=== PATIENT | female | born 1950 | race Caucasian/White ===

== ENCOUNTER 2017-06-11 10:23 | Emergency (ER) | payer OTHER ==
[~2017-06-11] VITALS: Ht 170.2 cm; Wt 60.0 kg
[2017-06-11 10:28] VITALS: BP 145/66; PULSE 90; RESP 16; TEMP 97.6; O2SAT 97
[2017-06-11] MEDS ORDERED: ASPI81CH6 CHEW (10:36)
--- NOTE | 2017-06-11 10:39 | PD ---
HPI Chief Complaint: Injury Time Seen by Provider: 10:37 Travel History International Travel<30 days: No Contact w/Intl Traveler<30days: No Traveled to known affect area: No History of Present Illness HPI 2-8-ayat-old female presents via EMS after slipping and falling while trying to get into the bathtub and falling backwards and hitting her left hip on the toilet. She denies hitting her head or loss of consciousness. Denies neck pain or back pain. Has been ambulatory since after the fall and met the ambulance [place] the [place] floor of [place], per EMS. Says pain did radiate to her left thigh area, but not now. Denies paresthesias, loss of sensation, decreased range of motion, decreased strength to the affected extremity. Rates pain 6/10. Worse with movement. Better at rest. EMS gave an ice pack. She took ibuprofen 800 mg prior to EMS arriving. Denies chest pain, shortness of breath, abdominal pain, vomiting. Primary care provider is in [place]. No known allergies. Denies significant past medical history. Denies anticoagulants. Takes baby aspirin daily. Has no other medical complaints. No other modifying factors or associated signs and symptoms. PFSH Past Medical History Medical History: Denies Significant Hx Past Surgical History Hysterectomy: Yes Social History Alcohol Use: Yes (OCCASIONALLY) Tobacco Use: No Substance Use: No Allergies-Medications (Allergen,Severity, Reaction): Coded Allergies: No Known Allergies (Unverified , 06/11/17) Reported Meds & Prescriptions Reported Meds & Active Scripts Active Walker/Adult/Folding (Device) 1 Mis Mis Ea .XX DIRECTED Ibuprofen 800 Mg Tab 800 Mg PO Q6HR PRN Robaxin (Methocarbamol) 500 Mg Tab 500 Mg PO QID PRN Reported Aspirin Low Dose (Aspirin) 81 Mg Chew 81 Mg CHEW DAILY Review of Systems Except as stated in HPI: all other systems reviewed are Neg Physical Exam Narrative GENERAL: Well-nourished, well-developed female patient, in no acute distress; afebrile, nontoxic-appearing SKIN: Warm and dry. HEAD: Atraumatic. Normocephalic. EYES: Pupils equal and round. No scleral icterus. No injection or drainage. ENT: Mucosa pink and moist. Airway patent. NECK: Trachea midline. CARDIOVASCULAR: Regular rate. RESPIRATORY: No accessory muscle use. GASTROINTESTINAL: Flat. MUSCULOSKELETAL: Left hip with full range of motion; without erythema, edema, or ecchymosis; without tenderness on abduction; tenderness on palpation to the lateral aspect; no obvious deformity; no leg length discrepancy. Left lower extremity is supple and non-tense with 2+ pedal pulse and sensory intact and without erythema or edema. NEUROLOGICAL: Awake and alert. Oriented 3. No obvious cranial nerve deficits. Motor grossly within normal limits. Normal speech. PSYCHIATRIC: Appropriate mood and affect; insight and judgment normal. Data Data Last Documented VS Vital Signs Date Time Temp Pulse Resp B/P (MAP) Pulse Ox O2 Delivery O2 Flow Rate FiO2 06/11/17 10:28 97.6 90 16 145/66 (92) 97 Orders Orders Hip, Uni(Ap&Lat) W Ap Pelvis (06/11/17 10:47) Ice/Cold Pack (06/11/17 10:47) Ed Discharge Order (06/11/17 11:39) MDM Medical Decision Making Medical Screen Exam Complete: Yes Emergency Medical Condition: Yes Medical Record Reviewed: Yes Differential Diagnosis Hip contusion, fall, hip fracture Narrative Course 66-year-old female arrives via EMS after mechanical slip and fall with left hip pain. Patient took 800 mg ibuprofen prior to EMS. Left hip with AP pelvis x- ray ordered. 1135: Left hip with AP pelvis x-ray concluded: No evidence of recent bony injury. Discussed x-ray findings with the patient. Robaxin and ibuprofen prescribed for home. A walker was prescribed for home. I offered the patient crutches in the ER and she declined. Instructed patient to follow up with primary care provider. Patient verbalizes understanding and agreement with treatment plan. Patient is medically cleared and stable for discharge. Discussed reasons to return to the emergency department. Patient agrees with treatment plan. The patients vital signs are stable and the patient is stable for outpatient follow-up and treatment. Patient discharged home, stable and in no acute distress. Diagnosis Primary Impression: Fall Qualified Codes: W19.XXXA - Unspecified fall, initial encounter Additional Impression: Contusion of left hip Qualified Codes: S70.02XA - Contusion of left hip, initial encounter Referrals: Primary Care Physician Patient Instructions: General Instructions, Hip Contusion (ED) Additional Instructions: Tylenol or ibuprofen as directed and as needed for pain Robaxin as prescribed and as needed for muscle spasms Crutches/walker as needed for support Heating pad and/or ice to affected area to reduce pain Avoid aggravating activities; increase activity as tolerated Follow-up with primary care provider Return to emergency department immediately with worsening of symptoms Med/Other Pt SpecificInfo: Prescription(s) given Scripts Walker/Adult/Folding (Walker/Adult/Folding) 1 Mis Mis EA .XX DIRECTED, #1 0 Refills Prov: Alexandrea Oliveira 06/11/17 Ibuprofen (Ibuprofen) 800 Mg Tab 800 MG PO Q6HR Y for PAIN, #30 TAB 0 Refills Prov: Alexandrea Oliveira 06/11/17 Methocarbamol (Robaxin) 500 Mg Tab 500 MG PO QID Y for MUSCLE SPASM, #30 TAB 0 Refills Prov: Alexandrea Oliveira 06/11/17 Disposition: 01 DISCHARGE HOME Condition: Stable Alexandrea Oliveira Jun 11, 2017 10:39
--- NOTE | 2017-06-11 11:28 | RADRPT ---
EXAM DATE/TIME: 06/11/2017 10:59 [facility] COMPARISON: No previous studies available for comparison. INDICATIONS : Left hip pain; Slipped and fell out of shower and hit butt on toilet. MEDICAL HISTORY : None. SURGICAL HISTORY : None. ENCOUNTER: Initial ACUITY: 1 day PAIN SCORE: 10/10 LOCATION: Left posterior pelvis. FINDINGS: Examination of the left hip was performed with AP Pelvis. The primary and secondary trabecular patte rn of the femoral neck is intact. The hip joint is of normal width without significant sclerosis or bony hypertrophy. The acetabulum is grossly intact. CONCLUSION: No evidence of recent bony injury. Jaswinder Steward MD on June 11, 2017 at 11:26 Board Certified Radiologist. This report was verified electronically.
[2017-06-11] MEDS ORDERED: IBUP1TAB7 PO (11:39)
[2017-06-11] MEDS ORDERED: ROBA500T PO (11:39)
[2017-06-11] MEDS ORDERED: WALKER/ADULT/FO1 MIS (11:39)
== END 2017-06-11 11:50 | disposition home or self-care (01) ==
LOC: NEPD 10:23
DX: S70.02XA Contusion of left hip, initial encounter (principal); W01.0XXA Fall on same level from slipping, tripping and stumbling without subsequent striking against object, initial encounter
CPT/HCPCS: 73502; 99283